=== PATIENT | male | born 1985 | race Caucasian/White ===

== ENCOUNTER 2018-08-08 12:58 | Observation (INO) | payer BC ==
--- NOTE | 2018-08-08 13:31 | EDPHY ---
H & P Time Seen by Provider: 08/08/18 13:28 HPI/ROS: CHIEF COMPLAINT: Abdominal pain HISTORY OF PRESENT ILLNESS: Patient started having symptoms Tuesday 3 days ago , saw his primary care doctor on Tuesday and was told today he has a high white blood cell count come to the emergency department. Symptoms are improved since Tuesday but not completely gone. Now on the right lower quadrant. A little worsening moves his leg but not worse with walking. No intestinal symptoms of vomiting or diarrhea. Symptoms mild, no hematuria dysuria or testicular symptoms. No recent injury fall or trauma. REVIEW OF SYSTEMS: Eye: no change in vision ENT: no sore throat Cardiac: no chest pain or syncope Pulmonary: no cough or SOB Abdomen: HPI Musculoskeletal: no back pain Skin: no rash Neuro: no headache Constitutional: no fever : no urinary symptoms A comprehensive 10 point review of systems is otherwise negative aside from elements mentioned in the history of present illness. PAST MEDICAL HISTORY: Negative Social history: Smoker, PCP is Dr. Caro General Appearance: Alert and conversant, cooperative. Eyes: No scleral icterus. ENT, Mouth: Normal mucous membranes. Respiratory: Normal respiratory effort, breath sounds equal, lungs are clear to auscultation. Cardiovascular: Regular rate and rhythm. Gastrointestinal: Right lower quadrant tenderness without rebound or guarding, no hernia, normal male . Neurological: Alert, face symmetric, normal motor and sensory in extremities. Skin: Warm and dry, no rashes. Musculoskeletal: No peripheral edema. Psychiatric: Not agitated. Emergency Department course/MDM: WBC from yesterday 14,000, CT abdomen pelvis to evaluate for appendicitis discussed and consented. 1440: CT positive for appendicitis per Dr. Mares, discussed with the patient and with surgical consult Dr. Adrian at this time. Smoking Status: Current every day smoker Constitutional: Initial Vital Signs Temperature (C) 37 C 08/08/18 13:05 Heart Rate 69 08/08/18 13:05 Respiratory Rate 18 08/08/18 13:05 Blood Pressure 148/104 H 08/08/18 13:05 O2 Sat (%) 96 08/08/18 13:05 O2 Delivery Mode Room Air Allergies/Adverse Reactions: No Known Allergies Allergy (Unverified 08/08/18 13:14) Home Medications: Medication Instructions Recorded [facility] 08/08/18 Medical Decision Making - Diagnostics Imaging Results: Imaging Impressions Abdomen CT 08/08/18 14:03 Impression: Acute appendicitis, possibly recently ruptured. Results discussed with Dr. Levi Crocker at 2:35 PM. General information for patients regarding this examination can be found at [email or web address]. If you have questions or comments about this report, please contact me at (hospital) or [phone] (cell). Imaging: Discussed imaging studies w/ wallpaper cleaner Radiologist Differential Diagnosis: Differential considered including but not limited to mesenteric adenitis, appendicitis, gastroenteritis, hernia - Data Points Laboratory Results: Laboratory Results 08/08/18 13:49 08/08/18 08/08/18 13:55 13:49 WBC 10.36 10^3/uL H 10^3/uL (3.80-9.50) RBC 5.19 10^6/uL 10^6/uL (4.40-6.38) Hgb 15.8 g/dL g/dL (13.7-17.5) POC Hgb 16.0 gm/dL gm/dL (13.7-17.5) Hct 46.2 % % (40.0-51.0) POC Hct 47 % % (40-51) MCV 89.0 fL fL (81.5-99.8) MCH 30.4 pg pg (27.9-34.1) MCHC 34.2 g/dL g/dL (32.4-36.7) RDW 12.0 % % (11.5-15.2) Plt Count 235 10^3/uL 10^3/uL (150-400) MPV 10.1 fL fL (8.7-11.7) Neut % (Auto) 71.2 % % (39.3-74.2) Lymph % (Auto) 16.8 % % (15.0-45.0) [place] % (Auto) 10.3 % % (4.5-13.0) Eos % (Auto) 0.7 % % (0.6-7.6) Baso % (Auto) 0.6 % % (0.3-1.7) Nucleat RBC Rel Count 0.0 % % (0.0-0.2) Absolute Neuts (auto) 7.38 10^3/uL H 10^3/uL (1.70-6.50) Absolute Lymphs (auto) 1.74 10^3/uL 10^3/uL (1.00-3.00) Absolute Monos (auto) 1.07 10^3/uL H 10^3/uL (0.30-0.80) Absolute Eos (auto) 0.07 10^3/uL 10^3/uL (0.03-0.40) Absolute Basos (auto) 0.06 10^3/uL 10^3/uL (0.02-0.10) Absolute Nucleated RBC 0.00 10^3/uL 10^3/uL (0-0.01) Immature Gran % 0.4 % % (0.0-1.1) Immature Gran # 0.04 10^3/uL 10^3/uL (0.00-0.10) POC Sodium 140 mEq/L mEq/L (135-145) POC Potassium 4.0 mEq/L mEq/L (3.3-5.0) POC Chloride 102 mEq/L mEq/L (97-110) POC Total CO2 23 mEq/L mEq/L (22-31) POC BUN 14 mg/dL mg/dL (7-23) POC Creatinine 1.0 mg/dL mg/dL (0.7-1.3) POC Glucose 101 mg/dL H mg/dL (70-100) Point of Care Test Results: Chemistry 08/08/18 13:55 POC Sodium 140 mEq/L mEq/L (135-145) POC Potassium 4.0 mEq/L mEq/L (3.3-5.0) POC Chloride 102 mEq/L mEq/L (97-110) POC Total CO2 23 mEq/L mEq/L (22-31) POC BUN 14 mg/dL mg/dL (7-23) POC Creatinine 1.0 mg/dL mg/dL (0.7-1.3) POC Glucose 101 mg/dL H mg/dL (70-100) ISTAT H&H 08/08/18 13:55 POC Hgb 16.0 gm/dL gm/dL (13.7-17.5) POC Hct 47 % % (40-51) Departure - Departure Disposition: [facility] Acute Clinical Impression: Acute appendicitis Condition: Good
[2018-08-08 14:01] LABS: PLATELET COUNT 235 10^3/uL (150-400)
[2018-08-08] MEDS ORDERED: IOPAMIDOL (ISOVUE-300) 100 ML BTL ONE (14:09)
[2018-08-08] MEDS ORDERED: LR 1,000 ML IV ONE (15:10)
--- NOTE | 2018-08-08 16:28 | PDGENHP ---
History and Physical - Chief Complaint abdominal pain - History of Present Illness 33yo M c abdominal pain since last weekend. Pain actually got a little better end of the weekend but recurred yesterday. Saw his PCP yesterday and had some bloodwork, patient was called this AM with results of an elevated WBC. No fevers or chills, has been working the past few days. 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 Review of Systems Review of Systems: ROS: 10pt was reviewed & negative except for what was stated in HPI & below Physical Exam Physical Exam: Temp Pulse Resp BP Pulse Ox 36.7 C 75 18 144/94 H 98 08/08/18 15:25 08/08/18 15:25 08/08/18 15:25 08/08/18 15:25 08/08/18 15:25 Constitutional: no apparent distress, appears nourished, not in pain Eyes: PERRL, anicteric sclera, EOMI Ears, Nose, Mouth, Throat: moist mucous membranes, hearing normal, ears appear normal, no oral mucosal ulcers Cardiovascular: regular rate and rhythym, no murmur, rub, or gallop, No edema Respiratory: no respiratory distress, no rales or rhonchi, clear to auscultation Gastrointestinal: normoactive bowel sounds, no palpable masses, other (TTP in RLQ with rebound ) Genitourinary: no bladder fullness, no bladder tenderness Skin: warm, normal color, no rashes or abrasions, no fluctuance, no induration, No mottled Musculoskeletal: full muscle strength, no muscle tenderness, normal joint ROM, no joint effusions Psychiatric: interacting appropriately, not anxious, not encephalopathic, thought process linear Lymph, Heme, Immunologic: no cervical LAD, no supraclavicular LAD Lab Data & Imaging Review 08/08/18 13:49 WBC 10.36 10^3/uL (3.80-9.50) H 08/08/18 13:49 RBC 5.19 10^6/uL (4.40-6.38) 08/08/18 13:49 Hgb 15.8 g/dL (13.7-17.5) 08/08/18 13:49 POC Hgb 16.0 gm/dL (13.7-17.5) 08/08/18 13:55 Hct 46.2 % (40.0-51.0) 08/08/18 13:49 POC Hct 47 % (40-51) 08/08/18 13:55 MCV 89.0 fL (81.5-99.8) 08/08/18 13:49 MCH 30.4 pg (27.9-34.1) 08/08/18 13:49 MCHC 34.2 g/dL (32.4-36.7) 08/08/18 13:49 RDW 12.0 % (11.5-15.2) 08/08/18 13:49 Plt Count 235 10^3/uL (150-400) 08/08/18 13:49 MPV 10.1 fL (8.7-11.7) 08/08/18 13:49 Neut % (Auto) 71.2 % (39.3-74.2) 08/08/18 13:49 Lymph % (Auto) 16.8 % (15.0-45.0) 08/08/18 13:49 [place] % (Auto) 10.3 % (4.5-13.0) 08/08/18 13:49 Eos % (Auto) 0.7 % (0.6-7.6) 08/08/18 13:49 Baso % (Auto) 0.6 % (0.3-1.7) 08/08/18 13:49 Nucleat RBC Rel Count 0.0 % (0.0-0.2) 08/08/18 13:49 Absolute Neuts (auto) 7.38 10^3/uL (1.70-6.50) H 08/08/18 13:49 Absolute Lymphs (auto) 1.74 10^3/uL (1.00-3.00) 08/08/18 13:49 Absolute Monos (auto) 1.07 10^3/uL (0.30-0.80) H 08/08/18 13:49 Absolute Eos (auto) 0.07 10^3/uL (0.03-0.40) 08/08/18 13:49 Absolute Basos (auto) 0.06 10^3/uL (0.02-0.10) 08/08/18 13:49 Absolute Nucleated RBC 0.00 10^3/uL (0-0.01) 08/08/18 13:49 Immature Gran % 0.4 % (0.0-1.1) 08/08/18 13:49 Immature Gran # 0.04 10^3/uL (0.00-0.10) 08/08/18 13:49 POC Sodium 140 mEq/L (135-145) 08/08/18 13:55 POC Potassium 4.0 mEq/L (3.3-5.0) 08/08/18 13:55 POC Chloride 102 mEq/L (97-110) 08/08/18 13:55 POC Total CO2 23 mEq/L (22-31) 08/08/18 13:55 POC BUN 14 mg/dL (7-23) 08/08/18 13:55 POC Creatinine 1.0 mg/dL (0.7-1.3) 08/08/18 13:55 POC Glucose 101 mg/dL (70-100) H 08/08/18 13:55 Visualized and Interpreted imaging results: Yes Interpretation: CT: acute appendicitis, possible rupture Assessment & Plan Assessment: Acute appendicitis (Acute) Plan: 33yo M c acute appendicitis - IV abx given in ED - to OR for lap VALENTE beltran discussed.
[2018-08-08] MEDS ORDERED: MIDAZOLAM 2 MG/2 ML VIAL IVP ONE (16:30)
--- NOTE | 2018-08-08 16:31 | PDANEPAE ---
ANE Past Medical History - Cardiovascular History Hx Hypertension: No Hx Arrhythmias: No Hx Chest Pain: No Hx Coronary Artery / Peripheral Vascular Disease: No Hx CHF / Valvular Disease: No Hx Palpitations: No - Pulmonary History Hx COPD: No Hx Asthma/Reactive Airway Disease: No Hx Recent Upper Respiratory Infection: No Hx Oxygen in Use at Home: No Hx Sleep Apnea: No - Neurologic History Hx Cerebrovascular Accident: No Hx Seizures: No Hx Dementia: No - Endocrine History Hx Diabetes: No - Renal History Hx Renal Disorders: No - Liver History Hx Hepatic Disorders: No - Neurological & Psychiatric Hx Hx Neurological and Psychiatric Disorders: No - Cancer History Hx Cancer: No - Congenital Disorder History Hx Congenital Disorders: No - GI History Hx Gastrointestinal Disorders: Yes Gastrointestinal History Comment: Acid Reflux - Chronic Pain History Chronic Pain: No - Surgical History Prior Surgeries: Tonsillectomy ANE Review of Systems Review of Systems: ANE Patient History - Allergies Allergies/Adverse Reactions: No Known Allergies Allergy (Unverified 08/08/18 13:14) - Home Medications Home Medications: Omeprazole 40 mg PO DAILY 08/08/18 [Last Taken 08/08/18] - NPO status NPO Since - Liquids (Date): 08/08/18 NPO Since - Liquids (Time): 13:00 NPO Since - Solids (Date): 08/08/18 NPO Since - Solids (Time): 11:00 - Smoking Hx Smoking Status: Current every day smoker - Alcohol Use Alcohol Use: Heavy - Family Anes Hx Family Hx Anesthesia Complications: None. ANE Labs/Vital Signs - Labs Result Diagrams: 08/08/18 13:49 - Vital Signs Blood Pressure: 144/94 Heart Rate: 75 Respiratory Rate: 18 O2 Sat (%): 98 Height: 190.5 cm Weight: 103.419 kg ANE Physical Exam - Airway Neck exam: FROM Mallampati Score: Class 2 - Pulmonary Pulmonary: no respiratory distress - Cardiovascular Cardiovascular: regular rate and rhythym - ASA Status ASA Status: II ANE Anesthesia Plan Anesthesia Plan: general endotracheal anesthesia
[2018-08-08] MEDS ORDERED: BUPIVACAINE/EPI 0.25% 30 ML SDV ONE (16:38)
[2018-08-08] MEDS ORDERED: PROPOFOL 200 MG/20 ML VIAL ONE (16:39)
[2018-08-08] MEDS ORDERED: LIDOCAINE 2% 100 MG/5 ML SYR ONE (16:39)
[2018-08-08] MEDS ORDERED: ROCURONIUM 50 MG/5 ML VIAL ONE (16:39)
[2018-08-08] MEDS ORDERED: fentaNYL 250 MCG/5 ML INJ ONE (16:39)
[2018-08-08] MEDS ORDERED: ONDANSETRON 4 MG/2 ML VIAL ONE ×3 (16:39→19:42)
[2018-08-08] MEDS ORDERED: SUGAMMADEX SODIUM 200 MG/2 ML VIAL IVP ONE (17:54)
[2018-08-08] MEDS ORDERED: ONDANSETRON 4 MG/2 ML VIAL IVP PRN (18:12)
[2018-08-08] MEDS ORDERED: ACETAMINOPHEN 325 MG TAB PO PRN (18:12)
[2018-08-08] MEDS ORDERED: HYDROmorphONE/DILAUDID 1 MG/ML INJ IVP PRN (18:12)
--- NOTE | 2018-08-08 18:12 | POSTOPPROG ---
Post Op Note Date of Operation: 08/08/18 Surgeon: Messi Adrian Anesthesiologist: Svetlaan Anesthesia: GET(General Endotracheal) Pre-op Diagnosis: appendicitis Post-op Diagnosis: perforated appendicitis Procedure: laparoscopic appendectomy Findings: perforated, base clean Inf/Abcess present in the surg proc area at time of surgery?: Yes Depth: Organ Space EBL: Minimal Total fluids administered: 1000cc NS washout Specimen(s): appendix
[2018-08-08] MEDS ORDERED: NALOXONE HCL 0.4 MG/ML INJ IVP PRN (18:14)
[2018-08-08] MEDS ORDERED: HYDROCODONE/APAP 5/325 TAB PO PRN (18:14)
[2018-08-08] MEDS ORDERED: ALBUTEROL 3 ML DEYVIAL IH PRN (18:14)
[2018-08-08] MEDS ORDERED: oxyCODONE IR 5 MG TAB PO PRN (18:14)
[2018-08-08] MEDS ORDERED: MEPERIDINE 25 MG/0.5 ML AMP IVP PRN (18:14)
[2018-08-08] MEDS ORDERED: ACETAMINOPHEN 500 MG TAB PO PRN (18:14)
[2018-08-08] MEDS ORDERED: D5W 1/2 NS W/ 20 KCl/L 1,000 ML IV SCH (18:15)
--- NOTE | 2018-08-08 18:16 | POSTANESTH ---
Post Anesthetic Evaluation Cardiovascular Status: Similar to Pre-Op Cond Respiratory Status: Similar to Pre-op Cond. Level of Consciousness/Mental Status: Mildly Sleepy, Arousable Pain Control: Adequate, Prn Tx Ordered Nausea/Vomiting Control: Adequate, Prn Tx Ordered Complications Possibly Related to Anesthesia: None Noted
[2018-08-08] MEDS ORDERED: fentaNYL 100 MCG/2 ML INJ ONE (18:26)
[2018-08-08] MEDS: fentaNYL 100 MCG/2 ML INJ IVP PRN ×3 (18:28→19:43)
[2018-08-08] MEDS: ONDANSETRON 4 MG/2 ML VIAL IVP PRN ×2 (18:28→19:42)
[2018-08-08] MEDS ORDERED: oxyCODONE IR 5 MG TAB ONE (19:42)
--- NOTE | 2018-08-08 22:05 | GOP ---
[f rep st] OPERATIVE REPORT DATE OF OPERATION: 08/08/2018 SURGEON: Messi Adrian MD FAMILY AND CONSUMER EDUCATION TEACHER: None. ANESTHESIA: General endotracheal provided by Dr. Sourav Mota. PREOPERATIVE DIAGNOSIS: Appendicitis. POSTOPERATIVE DIAGNOSIS: Perforated appendicitis. PROCEDURE PERFORMED: Laparoscopic appendectomy. FINDINGS: Retrocecal appendix which had perforated into the right pericolic gutter. Base was succes sfully dissected out, was clean and was stapled. Abscess cavity was successfully washed out. SPECIMENS: Appendix. ESTIMATED BLOOD LOSS: 10 cc. DESCRIPTION OF PROCEDURE: The patient was greeted in the preoperative suite. Once again, risks, yesika efits, and alternatives were discussed. Consent was signed. He was then brought back to the OR suit e, placed on the OR table in supine position. After all anesthesia machines including SCDs were on a nd functioning, World Health Organization time-out was performed. After successful induction of gene ral anesthesia, the patient's abdomen was prepped and draped in typical sterile fashion. I commenced the procedure by making an infraumbilical cutdown through which the Veress needle was passed. I ach ieved pneumoperitoneum to 15 mmHg CO2, which was well tolerated by the patient I then inserted a 12 m m Visiport through this site. Once successfully in the abdomen, I placed 2 additional 5 mm trocars, 1 in the suprapubic, 1 in the left lower quadrant, both under direct visualization. I successfully i dentified the appendix by tracing the taeniae inferiorly. The appendix was retrocecal. I had to mob ilize the lateral portion of the colon somewhat to be able to identify the appendix. The appendix wa s perforated. There was a small abscess cavity deep to this. Once I successfully was able to work t he appendix out of this cavity, I was able to identify the base, I skeletonized it by taking the meso appendix with the Harmonic Scalpel. Once successfully skeletonized, the base appeared healthy. I storey ccessfully amputated it off with a single fire of the Endo KRYSTA blue load stapler. It was placed in a n EndoCatch bag and removed. I then inspected my staple line, as well as the mesoappendix, which wer e clean, dry, and intact, as well as hemostatic. I irrigated the right lower quadrant, as well as th e patient's pelvis and right lower quadrant, as well as right upper quadrant with a liter of sterile saline noting clear effluent in the suction canister. Local anesthesia was then infiltrated into my port sites which were removed under direct visualization. My infraumbilical port site was closed wit h a 0 Vicryl stitch noting excellent fascial reapproximation. The skin was closed with Monocryl. De rmabond was placed. The patient was then extubated in the operative suite and taken to PACU in satis factory condition. DRAINS: None. COUNTS: All counts were reported as correct x2. /[id number]/MODL
[2018-08-08] MEDS: IBUPROFEN 600 MG TAB PO SCH (22:42)
[2018-08-08] MEDS: oxyCODONE IR 5 MG TAB PO PRN (22:43)
[2018-08-09] MEDS: IBUPROFEN 600 MG TAB PO SCH (04:58)
[2018-08-09] MEDS: oxyCODONE IR 5 MG TAB PO PRN (04:58)
[2018-08-09] MEDS ORDERED: PANTOPRAZOLE SODIUM 40 MG TAB PO SCH (09:00)
--- NOTE | 2018-08-09 11:13 | ASMTCMCOM ---
CM Note CM Note Notes: Reviewed chart, pt admitted for acute appendectomy. He is otherwise independent and will dc home when medically stable. CM avialable for any changes. DC Plan: Independent Date Signed: 08/09/2018 11:12 AM Electronically Signed By:Felicitas Adams RN
[2018-08-09 11:38] VITALS: BP 122/70
--- NOTE | 2018-08-09 12:21 | GDS ---
[f rep st] DISCHARGE SUMMARY ADMITTING DIAGNOSIS: Acute perforated appendicitis. SECONDARY DIAGNOSIS: Gastroesophageal reflux disease. REASON FOR ADMISSION: A 33-year-old man who presented to the emergency room complaining of abdominal pain. Abdominal CT showed acute appendicitis with possible rupture. He was admitted for surgical i ntervention, pain control, and observation. HOSPITAL COURSE: He was taken to the operating room by Dr. Messi Adrian on 08/08/2018 for laparos copic appendectomy. At the time of surgery, the appendix had a small localized perforation. There w as no gross purulence in the pelvis. The abdomen was washed out with 1 L of normal saline. On posto perative day #1, his pain was well controlled with oral pain medication. He was tolerating a regular diet without nausea, vomiting, or distention. He was passing flatus and ambulating independently. He was ready for discharge. DISCHARGE CONDITION: Home in stable condition. DISCHARGE MEDICATIONS: He was sent home with prescription for oxycodone IR, as well as Augmentin. H e was instructed to resume home medications. Please see EMR for further detail. DISCHARGE INSTRUCTIONS AND FOLLOWUP: He will follow up with Dr. Adrian in 2 weeks. No heavy lif ting, pushing, or pulling for 2 weeks. He may shower on postoperative day #1. No tub baths or soaki ng for 1 week. He was instructed to complete antibiotics as directed and call our office with any wo rsening symptoms, questions, or concerns. Work excuse was provided. /[id number]/MODL
== END 2018-08-09 12:20 | disposition home or self-care (01) ==
LOC: F3E 19:53
PROVIDERS: ADMIT Surgery; ATTEND Surgery
PROC: 0DTJ4ZZ Resection of Appendix, Percutaneous Endoscopic Approach (ICD-10-PCS; principal; 2018-08-08 16:45)
DX: K35.32 Acute appendicitis with perforation, localized peritonitis, and gangrene, without abscess (principal); F17.210 Nicotine dependence, cigarettes, uncomplicated
CPT/HCPCS: 44970; 74177; G0378; 82435-PO; 82565-PO; 82947-PO; 84132-PO; 84295-PO; 84520-PO; 85014-ER; 96365; J0696; J2001; J2250; J2405; J2704; J3010; Q9967